=== PATIENT | female | born 1990 | race Caucasian/White ===

== ENCOUNTER 2021-06-26 19:07 | Emergency (ER) | payer OTHER ==
[2021-06-26 19:50] LABS: HEMOGLOBIN 13.1 gm/dl (12.3-15.3); RED BLOOD COUNT 4.2 M/UL (4.00-5.10); WHITE BLOOD COUNT 11.4 K/UL (4.5-11.0)
[2021-06-26 20:11] LABS: BUN/CREATININE RATIO 20 (0-10)
[2021-06-26] MEDS ORDERED: ZOFRAN 4 MG TAB4 MG PO (21:14)
[2021-06-26] MEDS ORDERED: MIRALAX17 GM PO (21:14)
[2021-06-26] MEDS ORDERED: OMNICEF 300 MG300 MG PO (21:14)
== END 2021-06-26 21:23 | disposition home or self-care (01) ==
LOC: ER1 19:07
PROVIDERS: Physician Assistant Medical
DX: K59.00 Constipation, unspecified (principal); N39.0 Urinary tract infection, site not specified; R10.32 Left lower quadrant pain; F17.210 Nicotine dependence, cigarettes, uncomplicated
CPT/HCPCS: 80053; 81001; 84703; 85025; 99284